=== PATIENT | male | born 1985 | race African-American/Black ===

== ENCOUNTER 2021-09-04 22:34 | Emergency (ER) | payer SELFPAY ==
[~2021-09-04] VITALS: Ht 177.8 cm; Wt 79.4 kg
--- NOTE | 2021-09-04 22:54 | NUR ---
CALLED FOR TRIAGE, NOT IN WAITING ROOM
[2021-09-04 23:16] VITALS: BP 150/94
== END 2021-09-04 23:38 | disposition home or self-care (01) ==
LOC: ER 22:43
DX: S61.211A Laceration without foreign body of left index finger without damage to nail, initial encounter (principal); W26.8XXA Contact with other sharp object(s), not elsewhere classified, initial encounter; Y93.89 Activity, other specified; Y92.89 Other specified places as the place of occurrence of the external cause; Y99.8 Other external cause status

== ENCOUNTER 2022-01-17 19:19 | Emergency (ER) | payer SELFPAY ==
[~2022-01-17] VITALS: Ht 177.8 cm; Wt 72.6 kg
[2022-01-17] MEDS ORDERED: ACETAMINOPHEN 325 MG TABLET PO ONE (19:30)
[2022-01-17] MEDS ORDERED: IBUPROFEN 600 MG TABLET PO ONE (19:30)
--- NOTE | 2022-01-17 19:31 | NUR ---
TO ER BED 11. BIBS FROM HOME C/O FEVER . PT IS ALERT AND ORIENTED. RR EVEN AND NON LABORED. CONNECTED TO MONITOR. AWAITING MD SHARMA
[2022-01-17] MEDS ORDERED: ACETAMINOPHEN 325 MG TABLET ONE (19:52)
[2022-01-17] MEDS ORDERED: IBUPROFEN 600 MG TABLET ONE (19:53)
--- NOTE | 2022-01-17 20:10 | NUR ---
COVID PCR AND INFLUENZA SWAB COLLECTED
--- NOTE | 2022-01-17 22:15 | NUR ---
Patient discharged to home in stable condition. Written and verbal after care instructions given. Patient verbalizes understanding of instruction.
[2022-01-17 23:12] VITALS: BP 124/64
== END 2022-01-17 23:12 | disposition home or self-care (01) ==
LOC: ER 19:23
DX: B34.9 Viral infection, unspecified (principal); Z20.822 Contact with and (suspected) exposure to COVID-19; J45.909 Unspecified asthma, uncomplicated
CPT/HCPCS: 99284; 71045; 87804; U0003; C9803

== ENCOUNTER 2024-09-23 22:26 | Emergency (ER) | payer MEDICAID ==
[~2024-09-23] VITALS: Ht 177.8 cm; Wt 77.1 kg
[2024-09-23] MEDS ORDERED: PANTOPRAZOLE 40 MG VIAL ONE (23:04)
[2024-09-23] MEDS ORDERED: MORPHINE SULFATE INJ 4 MG/ML DISP.SYRIN ONE (23:04)
[2024-09-23] MEDS ORDERED: ONDANSETRON HCL/PF 4 MG/2 ML VIAL ONE (23:04)
[2024-09-23] MEDS: ONDANSETRON HCL/PF 4 MG/2 ML VIAL IVP ONE (23:35)
[2024-09-23] MEDS: PANTOPRAZOLE 40 MG VIAL IV ONE (23:35)
[2024-09-23] MEDS: MORPHINE SULFATE INJ 2 MG/ML DISP.SYRIN IV ONE (23:35)
[2024-09-23] MEDS: IV NS 0.9% 1,000 ML BAG IV ONE (23:35)
[2024-09-23] MEDS ORDERED: CT SWABBABLE VALVE TRANS SET 1 EA INFUS.SET MC ONE (23:36)
[2024-09-23] MEDS ORDERED: IOHEXOL-300 100 ML VIAL IV ONE (23:36)
[2024-09-23] MEDS ORDERED: IV NS 0.9% 250 ML IV ONE (23:36)
[2024-09-23 23:40] LABS: PLATELET COUNT (AUTO) 212 K/uL (150-450); RED BLOOD CELL COUNT(AUTO) 4.22 MIL/uL (4.5-6.0); RED CELL DISTRIBUTION WIDTH 13.2 % (11.5-15.0); WHITE BLOOD COUNT (AUTO) 4.9 K/uL (4.3-11.0)
[2024-09-23 23:54] LABS: ASPARTATE AMINOTRANSFERASE 23.0 U/L (15-37); CALCIUM, SERUM 8.6 mg/dL (8.5-10.1); CREATININE 0.9 mg/dL (0.6-1.3); SODIUM SERUM 141.0 mmol/L (136-145); TOTAL PROTEIN, SERUM 7.0 g/dL (6.4-8.2); UREA NITROGEN, BLOOD 11.0 mg/dL (7-18)
[2024-09-24 00:15] LABS: APPEARANCE,URINE CLEAR (CLEAR); BLOOD, URINE NEGATIVE Ery/uL (NEGATIVE); LEUKOCYTE ESTERASE ,URINE NEGATIVE (NEGATIVE); NITRITE, URINE NEGATIVE (NEGATIVE); UGLUCOSE NEGATIVE (NEGATIVE)
[2024-09-24] MEDS ORDERED: ONDA4TAB5 PO (01:31)
[2024-09-24] MEDS ORDERED: POLY119P PO (01:31)
[2024-09-24 02:24] VITALS: BP 112/79; TEMP 208.6; O2SAT 98
== END 2024-09-24 02:25 | disposition home or self-care (01) ==
LOC: ER 22:28
DX: R11.2 Nausea with vomiting, unspecified (principal); K59.00 Constipation, unspecified; J45.909 Unspecified asthma, uncomplicated; R10.13 Epigastric pain; R10.11 Right upper quadrant pain
CPT/HCPCS: 99285; 74177; 96374; 96375; 96361; 93005; 85025; 80048; 83690; 80076; 81003; 36415; J2270; J2405; J7050; J2470; Q9967

== ENCOUNTER 2024-10-22 18:00 | Emergency (ER) | payer MEDICAID ==
[~2024-10-22 18:00] MED LIST: ONDA4TAB5 PO; POLY119P PO
[2024-10-22] MEDS ORDERED: ACET325C7 PO (19:07)
== END 2024-10-22 18:16 | disposition home or self-care (01) ==
LOC: ER 18:04
DX: Z53.21 Procedure and treatment not carried out due to patient leaving prior to being seen by health care provider (principal)

== ENCOUNTER 2024-10-22 18:18 | Emergency (ER) | payer MEDICAID ==
[~2024-10-22] VITALS: Ht 177.8 cm; Wt 79.4 kg
[2024-10-22] MEDS: IV NS 0.9% 1,000 ML BAG IV ONE (19:02)
[2024-10-22] MEDS: KETOROLAC TROMETHAMINE 15 MG/ML VIAL IM ONE (19:02)
[2024-10-22] MEDS ORDERED: ACETAMINOPHEN ES 500 MG TABLET ONE (19:03)
[2024-10-22] MEDS: METOCLOPRAMIDE HCL 10 MG/2 ML VIAL IV ONE (19:04)
[2024-10-22] MEDS: ACETAMINOPHEN ES 500 MG TABLET PO ONE (19:04)
[2024-10-22] MEDS ORDERED: ACET325C7 PO (19:07)
[2024-10-22 19:16] VITALS: BP 105/60; TEMP 98; O2SAT 98
== END 2024-10-22 19:17 | disposition home or self-care (01) ==
LOC: ER 18:54
DX: R51.9 Headache, unspecified (principal); J45.909 Unspecified asthma, uncomplicated; Z60.2 Problems related to living alone; Z79.899 Other long term (current) drug therapy

== ENCOUNTER 2024-10-26 21:43 | Emergency (ER) | payer MEDICAID ==
[~2024-10-26] VITALS: Ht 177.8 cm; Wt 79.4 kg
[~2024-10-26 21:43] MED LIST changes: +ACET325C7 PO
[2024-10-26] MEDS ORDERED: dexaMETHasone SOD PHOSPHATE 10 MG/ML VIAL IV ONE (22:30)
[2024-10-26] MEDS ORDERED: PROCHLORPERAZINE EDISYLATE 10 MG/2 ML VIAL IVP ONE (22:30)
[2024-10-26] MEDS ORDERED: KETOROLAC TROMETHAMINE INJ 30 MG/ML VIAL IV ONE (22:30)
[2024-10-26] MEDS ORDERED: IV NS 0.9% 1,000 ML BAG IV ONE (22:30)
[2024-10-26] MEDS ORDERED: KETOROLAC TROMETHAMINE INJ 30 MG/ML VIAL ONE (22:50)
[2024-10-26] MEDS ORDERED: dexaMETHasone SOD PHOSPHATE 1 ML ONE (22:50)
[2024-10-26] MEDS ORDERED: PROCHLORPERAZINE EDISYLATE 10 MG/2 ML VIAL ONE (22:50)
[2024-10-26] MEDS ORDERED: KETOROLAC TROMETHAMINE INJ 30 MG/ML VIAL IM ONE (23:00)
[2024-10-26] MEDS ORDERED: PROCHLORPERAZINE MALEATE 10 MG TABLET PO ONE (23:00)
[2024-10-26] MEDS: IV NS 0.9% 1,000 ML BAG IV ONE (23:09)
[2024-10-26] MEDS: KETOROLAC TROMETHAMINE INJ 30 MG/ML VIAL IV ONE (23:11)
[2024-10-26] MEDS: dexaMETHasone SOD PHOSPHATE 10 MG/ML VIAL IV ONE (23:11)
[2024-10-26] MEDS: PROCHLORPERAZINE EDISYLATE 10 MG/2 ML VIAL IVP ONE (23:11)
[2024-10-27] MEDS ORDERED: PROC10TA29 PO (00:05)
[2024-10-27] MEDS ORDERED: SULI200T4 PO (00:05)
[2024-10-27 00:49] VITALS: BP 121/65; TEMP 98.7; O2SAT 98
== END 2024-10-27 00:49 | disposition home or self-care (01) ==
LOC: ER 21:45
DX: G43.909 Migraine, unspecified, not intractable, without status migrainosus (principal); J45.909 Unspecified asthma, uncomplicated; Z60.2 Problems related to living alone
CPT/HCPCS: 99284; 96374; 96375; 96361; J1885; J0780; Q0164; J1100; J7030

== ENCOUNTER 2024-12-09 22:00 | Emergency (ER) | payer MEDICAID ==
[~2024-12-09] VITALS: Ht 177.8 cm; Wt 79.4 kg
[~2024-12-09 22:00] MED LIST changes: +IBUP-1490 PO; +PROC10TA29 PO; +SULI200T4 PO
[2024-12-09 23:08] VITALS: BP 127/66; TEMP 98.4; O2SAT 99
[2024-12-09] MEDS ORDERED: KETO10TA2 PO (23:10)
== END 2024-12-09 23:13 | disposition home or self-care (01) ==
LOC: ER 22:03
DX: M79.642 Pain in left hand (principal); J45.909 Unspecified asthma, uncomplicated